=== PATIENT | male | born 1950 | race Caucasian/White ===

== ENCOUNTER 2017-09-24 10:21 | Day surgery (SDC) | END 2017-09-24 17:51 | disposition home or self-care (01) ==

== ENCOUNTER 2018-12-16 10:12 | Day surgery (SDC) | payer MEDICARE, BC ==
[2018-12-16] VITALS (18 sets, daily range): BP systolic 103–123; BP diastolic 70–81; PULSE 54–96; RESP 16–26; Ht 175.3 cm; Wt 71.5 kg
[~2018-12-16] VITALS: Ht 175.3 cm; Wt 71.5 kg
[~2018-12-16 10:12] MED LIST: LUBI24CA7 PO; SUVO20TA2 PO; TAMS-14 PO
[2018-12-16] MEDS ORDERED: CEFTRIAXONE 1 GM/NS 50 ML IVPB ONE (10:30)
[2018-12-16] MEDS ORDERED: LACTATED RINGER'S 1,000 ML IV SCH (12:00)
[2018-12-16] MEDS ORDERED: LIDOCAINE 2% (SDV) 5 ML INJ ONE (12:28)
[2018-12-16] MEDS ORDERED: FENTAnyl 50 MCG/ML VIAL ONE (12:28)
[2018-12-16] MEDS ORDERED: PROPOFOL 40 ML ONE (12:28)
[2018-12-16] MEDS ORDERED: FAMOTIDINE 20 MG INJ ONE (12:28)
[2018-12-16] MEDS ORDERED: ONDANSETRON 4 MG INJ ONE (12:28)
[2018-12-16] MEDS ORDERED: ROCURONIUM 50 MG INJ ONE ×2 (12:28)
[2018-12-16] MEDS ORDERED: EPHEDrine 25 MG/5 ML SYG ONE (13:13)
[2018-12-16] MEDS ORDERED: OXYCODONE/ACETAMINOPHEN (5/325) TAB PO PRN ×2 (13:30)
[2018-12-16] MEDS ORDERED: FENTAnyl 50 MCG/ML VIAL IV PRN ×3 (13:30)
[2018-12-16] MEDS ORDERED: DIPHENHYDRAMINE 50 MG INJ IV PRN (13:30)
[2018-12-16] MEDS ORDERED: ONDANSETRON 4 MG INJ IV PRN (13:30)
[2018-12-16] MEDS ORDERED: MEPERIDINE 25 MG INJ IV PRN (13:30)
[2018-12-16] MEDS ORDERED: HYDROmorphONE 1 MG/5 ML IV SYRINGE IV PRN ×3 (13:30)
[2018-12-16] MEDS ORDERED: NEOSTIGMINE 3 MG/3 ML SYRINGE ONE (14:27)
[2018-12-16] MEDS ORDERED: GLYCOPYRROLATE 0.4 MG INJ ONE (14:27)
[2018-12-16] MEDS ORDERED: HYDROCODONE/APAP (5/325) TAB PO PRN (15:00)
== END 2018-12-16 16:35 | disposition home or self-care (01) ==
LOC: SDS 10:12
PROVIDERS: ATTEND Urology
DX: N35.919 Unspecified urethral stricture, male, unspecified site (principal); N21.0 Calculus in bladder; D49.4 Neoplasm of unspecified behavior of bladder; N42.89 Other specified disorders of prostate
CPT/HCPCS: 87086; 88305; 88307; J0696; J2405; J2710; J3010